=== PATIENT | male | born 1975 | race Caucasian/White ===

== ENCOUNTER 2018-09-05 11:28 | Day surgery (SDC) | payer OTHER ==
--- NOTE | 2018-09-04 19:49 | PDGENHP ---
History and Physical - Chief Complaint LEFT HIP PAIN - History of Present Illness Diagnosis: 1. 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 History of Right Hip arthroscopy 2. ~~Clinical suspicion of retrotorsion of femur 3.~~~Taking Warfarin for Aortic valve replacement. ~Hx of DVT after vasectomy. 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 ~Kingsenjoys works on an [employer] machine. Abram's~LEFT~hip pain~started 1 year ago but got worse in November 2015 after horseback riding, with~no~recalled trauma or injury, and with~no~previous complaints.~Kingsdoes not have~a known history of hip dysplasia. Presentation today is of~anterolateral~left~hip pain. ~The hip~does not~wake him ~at night and~does not~click and catch on~him. Sitting~can be uncomfortable~for him.~Abram~especially when sitting with legs crossed~does~report suffering from lower back pain episodes. (He had a back injury to lumbar spine with herniated discs~L4-5-he had two lumbar RADHA without great success) Kingshas not~participated in physical therapy and has not~tried other conservative measures. Kingshas not~utilized medication for pain management. Kingsunderstands that~moises~has a hip and pelvis problem which should be researched and wishes to get a better understanding of~his~hip status, followed by an establishment of a treatment strategy, hoping~he~would be able to get back to~his~well being active life. History: Past medical history:~~ HTN, Mechanical Heart Valve (aortic) for congential bicuspid valve, History of DVT after being off Warfin for vascectomy Relevant familial history:~Father: Pancreatic [place] ~~~~~~~~~~~~~~~~~~~~~~~~~~~~~~~~~~~~Mother: of pneumonia (smoker) Past surgical history:~ No. Surgery Anesthesia Year 1 Aoritic Valve replacement general 2009 2 Lap Appendectomy general 3 Open ex-lap sigmoidectomy general Kingsdenies problematic issues with general anesthesia in the past. I have reviewed, verified and agree with the past medical, surgical, family and social history. Current Medications:~has a current medication list which includes the following prescription(s): docosahexanoic acid/epa, metoprolol tartrate, multivitamin, and warfarin. ALLERGIES:~has No Known Allergies. Objective: Physical Examination: Kingsis 5~feet~11~inches tall and weighs~200~Lbs. Kingsis AAO x3; moises~is well-nourished, in NAD. Skin is warm and dry. ~Breathing is non-labored. ~ CV with RRR by pulse. Abdomen is soft, NTND. Currently,~moises~walks with a~normal~gait. Trendelenburg sign is~negative~and proprioception~is normal,~both~sides. He~presents~with mild~signs of joint laxity.~Beightons Score:~2 Lower spine examination is~negative~for sciatic or femoral nerve irritation with negative~SLR &~femoral stretch tests. Range of motion of the spine is normal~for flexion, extension, and rotations,~with~associated~lumbar~pain; no tenderness on palpation Strength, Sensation and pulses are~normal -~bilaterally Ankles and knees exams are~normal~and~no~mal-alignment is evident.~ He~has~left~1~cm short leg length discrepancy. Thigh circumference is~symmetric~with no evidence for muscle atrophy~on both~ sides. Hip ROM (degrees): FL ER At 90~hip FL IR At 90~hip FL AB AD EX IR Neutral hip ER Neutral hip R 105 50 15 40 10 10 30 40 L 105 55 5 40 5 10 30 45 Specific hip and pelvis tests: Quadrant PATT Roll Add. Longus R +++ +++ Negative Negative L +++ +++ Negative Negative Glut. Med ITB Pos. Imp R Negative 5/5 strength Negative 5/5 strength Negative L Negative 5/5 strength Negative 5/5 strength Negative Squeeze test measured~slightly~weak Bony Symphysis pubis is~painful~to touch while concentric activity of the rectus abdominis,~does not~produce pain at its insertion. Ilio Psos specific tests are~negative for pain during cycling for~both hips~and no snap HF has~good strength and no pain~both hips. No~capsule tenderness bilaterally Greater trochanteric burse is~painful~on both hips. Piriformis tests: FAIR is~negative,~with no~local signs of neuritis related to sciatic nerve. SIJs examination is~normal~with~normal~PATT in relation and local tenderness. Hamstrings tests are~negative~functional contraction and negative~tendinopathy both hips. On a daily basis, the following percentages reflect~Abram's overall total pain: Deep hip:~70% GT:~30% Imaging: Radiology studies which I~have personally reviewed, analyzed and measured are below: XR: AP of the hip and pelvis: Performed in a~good~technique Coccyx to pubic symphysis distance~0.5~cm. 12~caudal [place]~Lines are preserved. Minimal~Pathological signs are seen in the Symphysis Pubis.~ Minimal~Pathological signs are seen at the Ischial~tuberosity. ~ Specific measurements show: NSA~ LCE Sourcil~Angle Sharp's angle Lat. Cam Lat. Pincer C.Over~sign Head~Coverage % ATDmm R N 38 -4 37 + + - N N L N 37 -4 36 + + - N N Pos. wall sign ISS NAD ~~Dysplasia Comments R Negative Negative 18~mm Negative L Negative Negative 18~mm Negative Sclerosis Sup. Lat. OA Cysts Joint Space-WBZ Joint Space-Medial R Negative Negative Negative 3.1~mm 4.3~mm L Negative Negative Negative 3.1~mm 4.0~mm X Table lateral: Anterior cam lesion is~seen~on both hips. Alpha Angle: ~ Right~68~dergrees Left~74~degrees MRI shows:~adequate cartilage coverage, no bone edema, labral tear Impression and plan:Samantha Valverde~is a~43 y.o.~active male~suffering from symptomatic~LEFT~hip pain due to ~Femoroacetabular impingement (MARK) Cam type~causing significant disability to~him~and altering~his~sport and life activities. Physical examination, imaging, and~his~story correspond with the diagnosis mentioned above. I explained that femoroacetabular impingement (MARK) arises due to a bony or soft tissue conflict between the femur (ball) and acetabulum (socket) caused by an abnormality in the shape of the hip joint. Over time, repetitive impingement can result in damage to the labrum and adjacent surface cartilage within the socket, ultimately giving rise to progressive osteoarthritis of the hip. I explained that although a labral tear can be a source of pain, it is rarely the root of the problem and typically occurs secondary to an underlying abnormality in the shape and mechanics of the hip joint. ~ I reviewed conservative treatment options for MARK including activity modification to avoid positions of impingement, physical therapy, non-steroidal anti-inflammatory medications, and various injections (corticosteroid and PRP) aimed at reducing inflammation in the hip joint or/and preventing dynamic impingement. PRP injections may promote healing and reduce symptoms in certain cases but it will not repair chronically damaged tissue. Although these measures may help to buy time and reduce current level of symptoms, they are not a definitive solution to the problem given the underlying abnormality in the shape of the hip joint. Patients who have failed conservative management and continue to experience symptoms are candidates for hip arthroscopy, a minimally invasive surgery that can definitively address the underlying problem. Hip arthroscopy typically includes treating the labrum with either repair or reconstruction of the torn labrum; as well as addressing the underlying abnormalities by restoring the normal shape to the hip joint. If the cartilage is damaged a Microfracture~surgical procedure may also be necessary to help stimulate the growth of fibrocartilage. If a patient requires a labral reconstruction or a Microfracture, the initial rehabilitation from the surgery may take longer, but the email engineer results are typically favorable. I reviewed the technical aspects of hip arthroscopy including risks, benefits, and expected course of recovery.~Abram~understands that hip arthroscopy is a minimally invasive outpatient procedure carried out through small incisions on the outer aspect of the hip joint. During surgery, the labral tear will be identified and either repaired or reconstructed~using bone anchors and suture material. Additionally, any excessive bone will be removed with a high- speed korina to reshape the hip joint and restore normal anatomy. Risks include infection, bleeding, injury to nearby nerves or vessels, stiffness, persistent pain, instability, venous thromboembolic disease, and traction related complications including temporary foot numbness. Rarely, revision surgery may be required to address these problems. Overall recovery takes approximately 4~ 8~months depending on the extent of damage and degree of repair. In the event that the labral tissue quality is inadequate for successful repair and healing,~Kingsunderstands that a labral reconstruction will be performed. This procedure entails placing a cadaver tissue graft within the hip joint and stabilizing it with bone anchors to build a new labrum. The overall recovery time for labral reconstruction is similar to that of labral repair, although the surgical procedure takes longer to perform. Kingswill review the info presented. In order to obtain more detailed information regarding the alignment, orientation, and shape of the bony hip and pelvis I will order a CT scan to be performed. The results of the CT scan, including femoral torsion and acetabular version measured values and 3D images, will aid me in deciding on the best treatment strategy and surgical pre-planning. If Abram decides to move forward with surgery, he will discuss doing a bridge with Lovenox for anticoagulation with his emergency manager. Kingsis going to think about his~options and get back to us. Kingsis happy with this plan. I have also supplied~rosita~with handouts, outlining the expected surgical treatment and rehab involved. I wish~Kingsall the best, ~~ ZORA Chowdhury History Information - Allergies/Home Medication List Allergies/Adverse Reactions: scopolamine Allergy (Verified 08/29/18 16:11) hallucinations Home Medications: Coumadin 08/29/18 [Last Taken Unknown] Metoprolol Tartrate 08/29/18 [Last Taken Unknown] I have personally reviewed and updated: medical history - Social History Smoking Status: Former smoker Review of Systems Review of Systems: Physical Exam Physical Exam:
[2018-09-05] MEDS ORDERED: ACETAMINOPHEN 500 MG TAB PO ONE (11:38)
[2018-09-05] MEDS ORDERED: PREGABALIN 150 MG CAP PO ONE (11:38)
[2018-09-05] MEDS ORDERED: ceFAZolin 2 GM/DEXTROSE 100 ML IV ONE (11:38)
[2018-09-05] MEDS ORDERED: LR 1,000 ML IV ONE (11:39)
[2018-09-05 12:34] LABS: INR 1.01 (0.83-1.16); PROTIME(PATIENT) 12.9 SEC (12.0-15.0)
[2018-09-05] MEDS ORDERED: MIDAZOLAM 2 MG/2 ML VIAL IVP ONE (12:38)
[2018-09-05] MEDS ORDERED: EPINEPHrine 1 MG/ML INJ ONE ×3 (12:42→15:04)
[2018-09-05] MEDS ORDERED: BUPIVACAINE/EPI 0.25% 30 ML SDV ONE ×2 (12:42→15:04)
--- NOTE | 2018-09-05 14:53 | POSTANESTH ---
Post Anesthetic Evaluation Cardiovascular Status: Normal, Stable Respiratory Status: Normal, Stable Level of Consciousness/Mental Status: Can Participate in Eval Pain Control: Adequate, Prn Tx Ordered Nausea/Vomiting Control: Adequate, Prn Tx Ordered Complications Possibly Related to Anesthesia: None Noted
--- NOTE | 2018-09-05 14:53 | PDANEPAE ---
ANE Past Medical History - Cardiovascular History Hx Hypertension: Yes Hx Arrhythmias: No Hx Chest Pain: No Hx Coronary Artery / Peripheral Vascular Disease: No Hx CHF / Valvular Disease: Yes Hx Palpitations: No Cardiovascular History Comment: htn. mechanical valve placed 01/2010. followed by cardiology at [facility] - Pulmonary History Hx COPD: No Hx Asthma/Reactive Airway Disease: No Hx Recent Upper Respiratory Infection: No Hx Oxygen in Use at Home: No Hx Sleep Apnea: No Sleep Apnea Screening Result - Last Documented: Negative - Neurologic History Hx Cerebrovascular Accident: No Hx Seizures: No Hx Dementia: No - Endocrine History Hx Diabetes: No - Renal History Hx Renal Disorders: No - Liver History Hx Hepatic Disorders: No - Neurological & Psychiatric Hx Hx Neurological and Psychiatric Disorders: No - Cancer History Hx Cancer: No - Congenital Disorder History Hx Congenital Disorders: No - GI History Hx Gastrointestinal Disorders: Yes Gastrointestinal History Comment: occ reflux - Other Health History Other Health History: none - Chronic Pain History Chronic Pain: Yes (left hip) - Surgical History Prior Surgeries: open heart surgery for mechanical valve. bilateral hip scopes with Steph-Isaias. colon resection. appy. open heart surgery as infant ANE Review of Systems Review of Systems: - Exercise capacity METS (RN): 4 METS ANE Patient History - Allergies Allergies/Adverse Reactions: scopolamine Allergy (Verified 08/29/18 16:11) hallucinations - Home Medications Home Medications: Coumadin 08/29/18 [Last Taken 09/01/18] Metoprolol Tartrate 08/29/18 [Last Taken 09/05/18 05:00] Lovenox 09/05/18 [Last Taken 09/04/18] - NPO status NPO Since - Liquids (Date): 09/05/18 NPO Since - Liquids (Time): 05:00 NPO Since - Solids (Date): 09/04/18 - Smoking Hx Smoking Status: Former smoker - Family Anes Hx Family Hx Anesthesia Complications: none ANE Labs/Vital Signs - Vital Signs Blood Pressure: 108/72 Heart Rate: 57 Respiratory Rate: 15 O2 Sat (%): 95 Height: 177.8 cm Weight: 84.368 kg ANE Physical Exam - Airway Neck exam: FROM Mallampati Score: Class 1 Mouth exam: normal dental/mouth exam - Pulmonary Pulmonary: no respiratory distress, no rales or rhonchi, clear to auscultation - Cardiovascular Cardiovascular: regular rate and rhythym, other (click with vlave) - ASA Status ASA Status: III ANE Anesthesia Plan Anesthesia Plan: general endotracheal anesthesia
[2018-09-05] MEDS ORDERED: LIDOCAINE 2% 5 ML SDV ONE (15:21)
[2018-09-05] MEDS ORDERED: DEXAMETHASONE 4 MG/ML VIAL ONE (15:21)
[2018-09-05] MEDS ORDERED: ONDANSETRON 4 MG/2 ML VIAL ONE ×3 (15:21→19:39)
[2018-09-05] MEDS ORDERED: fentaNYL 250 MCG/5 ML INJ ONE (15:21)
[2018-09-05] MEDS ORDERED: ROCURONIUM 50 MG/5 ML VIAL ONE (15:21)
[2018-09-05] MEDS ORDERED: DESFLURANE 240 ML BOTTLE IH ONE (15:26)
[2018-09-05] MEDS ORDERED: LR 500 ML IV PRN (16:03)
[2018-09-05] MEDS ORDERED: oxyCODONE IR 5 MG TAB PO PRN (16:03)
[2018-09-05] MEDS ORDERED: ACETAMINOPHEN 500 MG TAB PO PRN (16:03)
[2018-09-05] MEDS ORDERED: PROMETHAZINE HCL 25 MG/ML INJ IVP PRN (16:03)
[2018-09-05] MEDS ORDERED: NS 500 ML IV PRN (16:03)
[2018-09-05] MEDS ORDERED: METOCLOPRAMIDE 10 MG/2 ML VIAL IVP PRN (16:03)
[2018-09-05] MEDS ORDERED: MEPERIDINE 25 MG/0.5 ML AMP IVP PRN (16:03)
[2018-09-05] MEDS ORDERED: NALOXONE HCL 0.4 MG/ML INJ IVP PRN (16:03)
[2018-09-05] MEDS ORDERED: LABETALOL HCL 5 MG/ML 20 ML MDV IVP PRN (16:03)
[2018-09-05] MEDS ORDERED: PHENYLEPHRINE HCL 100 MCG/ML SYR IVP PRN (16:03)
--- NOTE | 2018-09-05 16:29 | POSTOPPROG ---
Post Op Note Date of Operation: 09/05/18 Surgeon: Andrea Duran Gas Fitter: Dr. Bucio Anesthesia: GET(General Endotracheal) Pre-op Diagnosis: LEFT HIP ADHESIONS Post-op Diagnosis: SAME Procedure: LEFT HIP REVISION ARTHROSCOPY Inf/Abcess present in the surg proc area at time of surgery?: No
[2018-09-05] MEDS: ONDANSETRON 4 MG/2 ML VIAL IVP PRN ×2 (18:57→19:40)
[2018-09-05] MEDS ORDERED: HYDROmorphONE/DILAUDID 1 MG/ML INJ ONE (19:01)
[2018-09-05] MEDS: HYDROmorphONE/DILAUDID 1 MG/ML INJ IVP PRN ×3 (19:02→19:33)
[2018-09-05] MEDS ORDERED: fentaNYL 100 MCG/2 ML INJ ONE (19:09)
[2018-09-05] MEDS: fentaNYL 100 MCG/2 ML INJ IVP PRN ×2 (19:11→19:21)
[2018-09-05] MEDS ORDERED: PROMETHAZINE HCL 25 MG/ML INJ ONE ×2 (19:51→19:59)
[2018-09-05] MEDS ORDERED: oxyCODONE IR 5 MG TAB ONE (20:55)
[2018-09-05 21:16] VITALS: BP 108/90
== END 2018-09-05 21:30 | disposition home or self-care (01) ==
LOC: FSGY 11:28
PROVIDERS: ATTEND Orthopaedic Surgery Sports Medicine
PROC: BQ111ZZ Fluoroscopy of Left Hip using Low Osmolar Contrast (ICD-10-PCS; principal; 2018-09-05 13:30)
PROC: 0SQB4ZZ Repair Left Hip Joint, Percutaneous Endoscopic Approach (ICD-10-PCS; principal; 2018-09-05 13:30)
PROC: 0SBB4ZZ Excision of Left Hip Joint, Percutaneous Endoscopic Approach (ICD-10-PCS; principal; 2018-09-05 13:30)
DX: M25.852 Other specified joint disorders, left hip (principal); M65.9 Synovitis and tenosynovitis, unspecified; M23.8X2 Other internal derangements of left knee; I10 Essential (primary) hypertension; Z79.01 Long term (current) use of anticoagulants; Z86.718 Personal history of other venous thrombosis and embolism; Z87.891 Personal history of nicotine dependence; Z95.2 Presence of prosthetic heart valve
CPT/HCPCS: C1713; J0171; J0690; J1100; J1170; J2405; J2550; J3010